=== PATIENT | male | born 1975 | race Caucasian/White ===

== ENCOUNTER 2019-06-30 10:26 | Emergency (ER) | payer OTHER ==
[~2019-06-30] VITALS: Ht 180.3 cm; Wt 97.5 kg
== END 2019-06-30 12:03 | disposition home or self-care (01) ==
LOC: ER 10:26
DX: S91.122A Laceration with foreign body of left great toe without damage to nail, initial encounter (principal); W45.8XXA Other foreign body or object entering through skin, initial encounter; Y93.89 Activity, other specified; Y92.098 Other place in other non-institutional residence as the place of occurrence of the external cause; Y99.8 Other external cause status

== ENCOUNTER 2019-07-08 11:37 | Emergency (ER) | payer OTHER ==
[~2019-07-08] VITALS: Ht 180.3 cm; Wt 97.1 kg
[2019-07-08] MEDS ORDERED: AMOX1TAB5 PO (12:53)
== END 2019-07-08 13:30 | disposition home or self-care (01) ==
LOC: ER 11:37
DX: Z48.02 Encounter for removal of sutures (principal)